=== PATIENT | female | born 1990 | race Two or more races ===

== ENCOUNTER 2019-01-15 13:15 | Inpatient (IN) | payer OTHER ==
[~2019-01-15] VITALS: Ht 175.3 cm; Wt 102.1 kg
[2019-02-02] MEDS ORDERED: PRENATAL VITAM1 EAC5 PO (16:42)
[2019-02-02] MEDS ORDERED: FERROUS SULFAT325 MG PO (17:41)
== END 2019-02-06 12:55 | disposition home or self-care (01) | DRG 788 ==
LOC: OB/GYN 01-16 13:15 → LDR 02-02 14:54 → OB/GYN 02-02 14:54 → LDR 02-02 17:26 → OB/GYN 02-03 17:04
PROVIDERS: ADMIT Obstetrics & Gynecology
PROC: 10D00Z1 Extraction of Products of Conception, Low, Open Approach (ICD-10-PCS; principal; 2019-02-02)
PROC: 3E0P7VZ Introduction of Hormone into Female Reproductive, Via Natural or Artificial Opening (ICD-10-PCS; 2019-02-02)
PROC: 3E033VJ Introduction of Other Hormone into Peripheral Vein, Percutaneous Approach (ICD-10-PCS; 2019-02-02)
PROC: 4A1HXCZ Monitoring of Products of Conception, Cardiac Rate, External Approach (ICD-10-PCS; 2019-02-02)
DX: O61.0 Failed medical induction of labor (principal); Z3A.39 39 weeks gestation of pregnancy; Z37.0 Single live birth

== ENCOUNTER 2019-01-19 11:08 | Outpatient (CLI) | payer OTHER | END 2019-01-19 11:58 | disposition home or self-care (01) | LOC: NST 11:08 | DX: Z34.83 Encounter for supervision of other normal pregnancy, third trimester (principal) ==

== ENCOUNTER 2019-02-02 08:46 | Outpatient (CLI) | payer OTHER ==
[2019-02-02] MEDS ORDERED: PRENATAL VITAM1 EAC5 PO (16:42)
[2019-02-02] MEDS ORDERED: FERROUS SULFAT325 MG PO (17:41)
== END 2019-02-02 09:26 | disposition home or self-care (01) ==
LOC: NST 08:46
DX: Z34.83 Encounter for supervision of other normal pregnancy, third trimester (principal)

== ENCOUNTER → 2019-02-07 | Emergency (ER) | payer OTHER ==
[~2019-02-07] VITALS: Ht 175.3 cm; Wt 90.7 kg
[~2019-02-07] MED LIST: FERROUS SULFAT325 MG PO; PRENATAL VITAM1 EAC5 PO
== END | disposition home or self-care (01) ==
LOC: ER 10:34
DX: S30.1XXA Contusion of abdominal wall, initial encounter (principal); V49.9XXA Car occupant (driver) (passenger) injured in unspecified traffic accident, initial encounter; Y93.89 Activity, other specified; Y92.488 Other paved roadways as the place of occurrence of the external cause; Y99.8 Other external cause status